=== PATIENT | male | born 1990 | race Caucasian/White ===

== ENCOUNTER 2022-04-06 14:12 | Emergency (ER) | payer MEDICAID, SELFPAY ==
--- NOTE | ~2022-04-06 | CT_ITS ---
EXAMINATION: CT abdomen pelvis wo IV con CLINICAL INFORMATION: Reason for Exam R sided flank pain COMPARISON: No prior CT available for comparison. TECHNIQUE: Multidetector volumetric imaging was performed from the superior aspect of the liver through the pubic symphysis 100 mL of Omnipaque 350 injected Sagittal and coronal reformatted images were obtained on the technologist's workstation. This CT examination was performed using dose optimization techniques as appropriate, variously including the following: *Automated exposure control *Adjustment of mA and/or kV according to patient size (this includes techniques or standardized protocols for targeted exams where dose is matched to indication/reason for exam; i.e. extremities or head) *Use of iterative reconstruction technique DLP: 1301 mGy-cm FINDINGS: LOWER THORAX: Included lung bases are clear. HEPATOBILIARY: Diffusely hypodense liver, suggesting steatosis, there is borderline enlarged measuring 25 cm. GALLBLADDER: Gallbladder unremarkable. SPLEEN: Spleen is normal in size. PANCREAS: No focal mass or ductal dilatation. STOMACH AND GASTROINTESTINAL TRACT: Stomach is grossly unremarkable. There is no bowel distention or thickening. No CT evidence of appendicitis. ADRENALS: No adrenal nodules. KIDNEYS/URETERS: No hydronephrosis, stones or solid mass lesions. URINARY BLADDER: Partially decompressed. PELVIC VISCERA: Unremarkable PERITONEUM: No free air or fluid. LYMPH NODES: No lymphadenopathy. VASCULAR:Abdominal aorta normal in size, no aneurysm found. BONES, ABDOMINAL WALL AND SOFT TISSUES: Age-appropriate changes of the spine and skeletal system, no destructive osteolytic or osteosclerotic bone lesion found CT/CT abdomen pelvis wo IV con IMPRESSION: * No CT evidence of acute intra-abdominal process to explain patient's pain symptoms. No kidney stones or hydronephrosis. No evidence of appendicitis. * Diffusely hypodense liver suggesting steatosis, liver is borderline enlarged measuring 25 cm.
[2022-04-06 15:31] VITALS: BP 162/102; PULSE 104; RESP 16; TEMP 36.7; O2SAT 98; BMI 36.9
--- NOTE | 2022-04-06 15:31 | ED.BACK ---
HPI - Back Pain/Injury General Chief Complaint: Back Pain/Injury <BREA Conti Last Filed: 04/06/22 15:35> Stated Complaint: lower back pain, no inj <BREA Conti Last Filed: 04/06/22 15:35> Time Seen by Provider: 04/06/22 16:49 <BREA Conti - Last Filed: 04/06/22 15:35> Source: patient <BREA Coronado Last Filed: 04/06/22 19:06> Mode of arrival: ambulatory <BREA Coronado Last Filed: 04/06/22 19:06> Limitations: no limitations <BREA Coronado Last Filed: 04/06/22 19:06> History of Present Illness HPI Narrative: This is a 32-year-old male history of obesity presenting to the emergency department complaints of sudden-onset right lower back pain, patient tells me this started last night at approximately 19:00, he noticed it when he was lying in bed. He tells me that the right lower back pain is worse with movement and in a sitting position better at rest and with standing upright. Patient tells me that he has had back pain before however it typically goes away. He tells me he was unable to sleep due to discomfort last night. Patient denies any trauma to the area. Patient tells me that the pain does not radiate. Patient denies numbness, tingling, saddle paresthesias, weakness, urinary/bowel incontinence/retention, chest pain, shortness of breath, fevers, chills, history of IV drug abuse, previous spinal surgeries. <BREA Coronado Last Filed: 04/06/22 19:06> Related Data Home Medications: Previous Rx's Medication Instructions Recorded cyclobenzaprine 10 mg tablet 10 mg PO BEDTIME PRN muscle spasm 04/06/22 #7 tabs ketorolac 10 mg tablet 10 mg PO TID PRN pain 5 days #15 04/06/22 tabs lidocaine 5 % topical patch 1 patch topical DAILY PRN pain #15 04/06/22 ea <BREA Conti Last Filed: 04/06/22 15:35> Allergies/Adverse Reactions: Allergies Allergy/AdvReac Type Severity Reaction Status Date / Time No Known Allergies Allergy Verified 04/06/22 15:33 <BREA Conti - Last Filed: 04/06/22 15:35> Review of Systems Review of Systems: Constitutional : No Weight loss, No Fever, No Chills, No Fatigue, No Malaise ENT/Mouth : No sore throat, No Rhinorrhea Eyes: No Eye Pain, No Swelling, No Redness Cardiovascular : No Chest Pain, No SOB, No Dyspnea on Exertion, No Orthopnea, No Edema, No Palpitations Respiratory : No Cough, No Sputum, No Wheezing Gastrointestinal : No Nausea, No Vomiting, No Diarrhea, No Constipation, No abdominal Pain, No Hematochezia, No Melena Genitourinary : No Dysuria, No Urinary Frequency, No Hematuria, Musculoskeletal : + joint pain, No Myalgias, No Joint Swelling Skin : No Skin Lesions, No rash Neuro : No Weakness, No Numbness, No Dizziness, No Headache Psych : No Anxiety/Panic, No Depression All other systems reviewed and are negative <BREA Coronado - Last Filed: 04/06/22 19:06> Yes all other systems are reviewed and are negative <BREA Coronado - Last Filed: 04/06/22 19:06> FOR[facility]LY [facility] Past Medical History Attestation statement: The following information was validated with the patient. <BREA Coronado - Last Filed: 04/06/22 19:06> Source: old records reviewed and nursing notes reviewed <BREA Coronado - Last Filed: 04/06/22 19:06> Social History Social History: Social History Advance Directives: No Advance Directives Information Provided: No <BREA Conti - Last Filed: 04/06/22 15:35> Physical Exam Vital Signs: Vital Signs: Last Vital Signs Temp 98.0 F 04/06/22 15:31 Pulse 104 H 04/06/22 15:31 Resp 16 04/06/22 15:31 BP 162/102 H 04/06/22 15:31 Pulse Ox 98 04/06/22 15:31 O2 Del Method 04/06/22 15:31 BMI result Body Mass Index 36.9 <BREA Conti - Last Filed: 04/06/22 15:35> Vital Signs: Last Vital Signs Temp 98.0 F 04/06/22 15:31 Pulse 104 H 04/06/22 15:31 Resp 16 04/06/22 15:31 BP 162/102 H 04/06/22 15:31 Pulse Ox 98 04/06/22 15:31 O2 Del Method 04/06/22 15:31 BMI result Body Mass Index 36.9 Patient is noted to be hypertensive likely secondary to pain. <BREA Coronado - Last Filed: 04/06/22 19:06> Appearance: Alert.? Oriented X3.? No acute distress.? Head: Normocephalic, atraumatic, no step-offs or deformities Eyes: Pupils equal, round and reactive to light.? ENT: Pharynx normal.? Neck: Normal inspection.? Neck supple.? CVS: Normal heart rate and rhythm.? Pulses normal.? Respiratory: No respiratory distress.? Breath sounds normal.? Abdomen: Soft and nontender.? Skin: Skin warm and dry.? Normal skin color.? Normal skin turgor.? Extremities: No lower extremity edema.? No calf ttp. 5/5 strength to bilateral upper and lower extremities Back: No midline tenderness, no C-spine tenderness, full range of motion, no CVA tenderness bilaterally. No pain with palpation of bilateral lumbar paraspinous muscles. No midline tenderness. Full range of motion however painful with flexion and extension of back. Neuro: Oriented X 3.? No motor deficit.? No sensory deficit. CN 2-12 intact . Patient pacing around the room, ambulating with steady gait normal coordination. <BREA Coronado - Last Filed: 04/06/22 19:06> Course Course Course Narrative: 15:31 - RME - 32 yo male with history of obesity presents to the ER for evaluation of right lower back pain that started at 7pm last night when he went to get out of bed. Unable to sleep last night due to the pain. No urinary symptoms. Unable to go from sitting to standing without severe pain. No fevers, IVDA, no urinary symptoms. - will been seen in [facility] for most likely MSK pain <Paz Renschler, PA - Last Filed: 04/06/22 15:35> Reevaluation(s) Reevaluation #1: UA without infection. CT of the abdomen pelvis with no acute findings likely musculoskeletal pain.. I suspect patient will be discharged home he reports symptomatic improvement even before pain medicine. Educated on supportive measures, will discharge home on Lidoderm patches, cyclobenzaprine and Toradol. Educated patient on diagnosis and treatment plan, answered all question, patient verbalizes understanding. At this time patient will be discharged home, advised to return with new or worsening symptoms. Educated on worrisome signs and symptoms and when to return. At this time I feel comfortable discharge home. <BREA Coronado - Last Filed: 04/06/22 19:06> Time: 18:56 <BREA Coronado - Last Filed: 04/06/22 19:06> Medical Decision Making Medical Decision Making [facility] Narrative: 1700 This is a 32-year-old male presenting with atraumatic right lower back pain that started yesterday. Physical examination with pain with range of motion of back with flexion and extension. Ambulating with steady gait normal coordination. No saddle paresthesias. No midline tenderness. Concerns for musculoskeletal pain/muscle spasm. Unlikely that this is cauda equina or epidural abscess. Other differentials include sciatica. No urinary symptoms unlikely pyelo, UTI. No pain with palpation of abdomen unlikely acute abdomen or any intra-abdominal pathologies. Plan at this time is to obtain a CT of the abdomen and pelvis to further investigate back pain and right flank pain. <BREA Coronado Last Filed: 04/06/22 19:06> Lab Data Labs: Lab Results 04/06/22 Range/Units 18:38 Urine Color Yellow Urine Appearance Clear Urine pH 5.5 (5.0-9.0) Ur Specific [place] 1.025 (1.005-1.025) Urine Protein Negative (Neg-Trace) mg/dL Urine Glucose (UA) Negative (Negative) mg/dL Urine Ketones Negative (Negative) mg/dL Urine Blood Negative (Negative) Urine Nitrite Negative (Negative) Ur Leukocyte Esterase Negative (Negative) <BREA Conti Last Filed: 04/06/22 15:35> Lab Results 04/06/22 Range/Units 18:38 Urine Color Yellow Urine Appearance Clear Urine pH 5.5 (5.0-9.0) Ur Specific [place] 1.025 (1.005-1.025) Urine Protein Negative (Neg-Trace) mg/dL Urine Glucose (UA) Negative (Negative) mg/dL Urine Ketones Negative (Negative) mg/dL Urine Blood Negative (Negative) Urine Nitrite Negative (Negative) Ur Leukocyte Esterase Negative (Negative) <BREA Coronado - Last Filed: 04/06/22 19:06> Critical Care Time Critical Care Time Critical Care Time: No <BREA Coronado Last Filed: 04/06/22 19:06> Discharge Plan Discharge Clinical Impression: Lumbar back pain <BREA Conti Last Filed: 04/06/22 15:35> Patient Disposition: Home, Self-Care <BREA Conti - Last Filed: 04/06/22 15:35> Instructions: Back Pain (ED) <BREA Conti Last Filed: 04/06/22 15:35> Additional Instructions: Take your medications as prescribed. If you were prescribed antibiotics today, it is important that you take your medication to their entirety, do not skip any doses, do not finish them early. Follow-up with your primary care provider this week. Follow up with spine and sport if needed Return to the emergency department with new or worsening symptoms. Such as fevers, chills, chest pain, shortness of breath, nausea, vomiting, dizziness, headache, vision changes, lethargy In case of emergency call 911 Cyclobenzaprine as a muscle relaxer can make you sleepy, please take this while driving or operating machinery, do not mix with alcohol. Do not share with friends or family Toradol as a pain medicine that has been sent to her pharmacy, do not mix this with any other anti-inflammatory medications are ibuprofen, do not drink alcohol with this. CT/CT abdomen pelvis wo IV con IMPRESSION: * No CT evidence of acute intra-abdominal process to explain patient's pain symptoms. No kidney stones or hydronephrosis. No evidence of appendicitis. * Diffusely hypodense liver suggesting steatosis, liver is borderline enlarged measuring 25 cm. <BREA Conti - Last Filed: 04/06/22 15:35> Prescriptions: New cyclobenzaprine 10 mg tablet 10 mg PO BEDTIME PRN (Reason: muscle spasm) Qty: 7 0RF ketorolac 10 mg tablet 10 mg PO TID PRN (Reason: pain) 5 Days Qty: 15 0RF Rx Instructions: Tolerated IM in the department lidocaine 5 % adhesive patch,medicated 1 patch topical DAILY PRN (Reason: pain) Qty: 15 0RF Rx Instructions: leave on most painful area for up to 12 hrs <BREA Conti - Last Filed: 04/06/22 15:35> Referrals: [facility] [Provider Group] - 2 days Center,[facility] [Primary Care Provider] - 2 days <BREA Conti - Last Filed: 04/06/22 15:35> Stand Alone Forms: Work/School Release <BREA Conti - Last Filed: 04/06/22 15:35>
[2022-04-06 18:47] LABS: Appearance Urine Clear; Color Urine Yellow; Glucose Urine UA Negative (Negative); Leukocyte Esterase Urine Negative (Negative); Nitrite Urine Negative (Negative); PH 5.5 (5.0-9.0); Specific Gravity - Urine 1.025 (1.005-1.025); Urine Blood Negative (Negative); Urine Ketones Negative (Negative); Urine Protein Negative (Neg-Trace)
[2022-04-06] MEDS: Morphine Sulfate Immed Release 15 MG TABLET PO (19:25)
[2022-04-06] MEDS: Lidocaine 4 % Patch ADH..PATCH 1 PATCH TRANSDERMA (19:25)
[2022-04-06] MEDS: Ketorolac Tromethamine 30 MG/ML VIAL IM (19:26)
== END 2022-04-06 19:36 | disposition home or self-care (01) ==
PROVIDERS: Physician Assistant; Emergency Provider Emergency Medicine
DX: M54.50 Low back pain, unspecified (principal); M54.2 Cervicalgia; R10.13 Epigastric pain; Z79.899 Other long term (current) drug therapy
CPT/HCPCS: 74176; 81003; 96372; 99283; 99284; J1885